=== PATIENT | female | born 1985 ===

== ENCOUNTER 2023-05-06 11:29 | Outpatient (CLI) | payer OTHER | END 2023-05-06 13:00 | disposition home or self-care (01) | LOC: PRENATAL 11:29 | PROVIDERS: ATTEND Obstetrics & Gynecology Maternal & Fetal Medicine | DX: O35.9XX0 Maternal care for (suspected) fetal abnormality and damage, unspecified, not applicable or unspecified (principal); O35.3XX0 Maternal care for (suspected) damage to fetus from viral disease in mother, not applicable or unspecified; O09.519 Supervision of elderly primigravida, unspecified trimester; O99.280 Endocrine, nutritional and metabolic diseases complicating pregnancy, unspecified trimester; Z3A.20 20 weeks gestation of pregnancy ==

== ENCOUNTER 2023-07-25 10:35 | Outpatient (CLI) | payer OTHER | END 2023-07-25 12:11 | disposition home or self-care (01) | LOC: PRENATAL 10:35 | PROVIDERS: ATTEND Obstetrics & Gynecology Maternal & Fetal Medicine | DX: O26.849 Uterine size-date discrepancy, unspecified trimester (principal); O36.8199 Decreased fetal movements, unspecified trimester, other fetus; O09.519 Supervision of elderly primigravida, unspecified trimester; O99.280 Endocrine, nutritional and metabolic diseases complicating pregnancy, unspecified trimester; Z3A.32 32 weeks gestation of pregnancy ==

== ENCOUNTER 2023-09-06 13:00 | Inpatient (IN) | payer OTHER ==
[~2023-09-06] VITALS: Ht 162.6 cm; Wt 3.2 kg
[2023-09-12 10:13] LABS: HEMATOCRIT 32.4 % (36.0-45.00); HEMOGLOBIN 10.9 g/dL (12.0-15.00); MEAN CELL VOLUME 90.5 fL (80.00-100.00); MEAN CORPUSCULAR HEMOGLOBIN 30.4 pg (27.00-32.0); MEAN CORPUSCULAR HGB CONC 33.6 g/dl (32.0-36.0); PLATELET COUNT 291 K/uL (150-450); RED BLOOD COUNT 3.58 M/uL (4.00-6.00); RED CELL DISTRIBUTION WIDTH 15.4 % (11.5-14.5)
[2023-09-12 10:16] LABS: URINE APPEARANCE Clear; URINE BILIRRUBIN Negative (NEGATIVE); URINE BLOOD Negative; URINE COLOR Yellow; URINE GLUCOSE Negative (NEGATIVE); URINE LEUKOCYTE Moderate; URINE NITRATE Negative; URINE PROTEIN 30 (NEGATIVE); URINE UROBILINOGEN 0.2 E.U./dl
[2023-09-12 10:19] LABS: URINE BACTERIA 424.5 uL (0.0-1933); URINE EPITHELIAL CELLS 14.8 uL (0.0-38.8); URINE RBC 5.4 uL (0.0-20.8); URINE WBC 149.6 uL (0.0-23.2)
[2023-09-12 10:47] LABS: ALBUMIN 2.7 gm/dL (3.4-5.0); BILIRUBIN TOTAL 0.28 mg/dL (0.3-1.2); CALCIUM 8.8 mg/dL (8.5-10.1); CREATININE SERUM 1.29 mg/dL (0.55-1.02); GFR 46.76; GLOBULINA 3.6 G/DL (2.4-3.5); POTASSIUM 3.86 mEq/L (3.5-5.1); TOTAL PROTEIN 6.3 gm/dL (6.4-8.2)
[2023-09-12 11:00] LABS: INR 0.95; PARTIAL THROMBOPLASTIN TIME 25.4 SECONDS (22.0-34.0)
[2023-09-12] MEDS ORDERED: IRON325 MG PO (11:59)
[2023-09-12] MEDS ORDERED: PRENATAL TABLE1 EAC1 PO (11:59)
[2023-09-12] MEDS ORDERED: GLYBURIDE2.5 MG PO (12:00)
[2023-09-12] MEDS ORDERED: SYNTHROID88 MCG PO (12:01)
[2023-09-15 07:41] LABS: HEMATOCRIT 26.4 % (36.0-45.00); MEAN CELL VOLUME 91.9 fL (80.00-100.00); MEAN CORPUSCULAR HGB CONC 32.7 g/dl (32.0-36.0); PLATELET COUNT 185 K/uL (150-450); RED BLOOD COUNT 2.87 M/uL (4.00-6.00); RED CELL DISTRIBUTION WIDTH 14.8 % (11.5-14.5)
[2023-09-15 07:50] LABS: MEAN CORPUSCULAR HEMOGLOBIN 29.9 pg (27.00-32.0)
[2023-09-15 07:52] LABS: HEMOGLOBIN 8.6 g/dL (12.0-15.00)
[2023-09-16] MEDS ORDERED: INTEGRA PLUS C1 EACH PO ×2 (09:13→09:32)
[2023-09-16] MEDS ORDERED: IBU800 MG PO (09:32)
[2023-09-16] MEDS ORDERED: SURFAK240 M1 PO (09:32)
== END 2023-09-16 12:01 | disposition home or self-care (01) | DRG 788 ==
LOC: LDR 09-12 08:12 → OB/GYN 09-12 13:00 → LDR 09-12 16:40 → OB/GYN 09-14 07:33
PROVIDERS: Obstetrics & Gynecology; ADMIT Student in an Organized Health Care Education/Training Program; ATTEND Student in an Organized Health Care Education/Training Program
PROC: 3E0P7VZ Introduction of Hormone into Female Reproductive, Via Natural or Artificial Opening (ICD-10-PCS; 2023-09-12)
PROC: 4A1HXCZ Monitoring of Products of Conception, Cardiac Rate, External Approach (ICD-10-PCS; 2023-09-12)
PROC: 3E033VJ Introduction of Other Hormone into Peripheral Vein, Percutaneous Approach (ICD-10-PCS; 2023-09-13)
PROC: 10D00Z1 Extraction of Products of Conception, Low, Open Approach (ICD-10-PCS; principal; 2023-09-14 06:00)
DX: O62.1 Secondary uterine inertia (principal); O24.420 Gestational diabetes mellitus in childbirth, diet controlled; Z3A.39 39 weeks gestation of pregnancy; Z37.0 Single live birth; Z20.822 Contact with and (suspected) exposure to COVID-19